=== PATIENT | male | born 1990 | race Two or more races ===

== ENCOUNTER 2020-12-17 22:47 | Emergency (ER) | payer BC ==
[~2020-12-17] VITALS: Ht 190.5 cm; Wt 115.7 kg
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
--- NOTE | 2020-12-17 22:55 | NUR ---
BLOOD OBTAINED AND SENT TO LAB
[2020-12-17 23:08] LABS: BASOPHILS # (AUTO) 0.1 K/uL (0.0-0.2); BASOPHILS % (AUTO) 0.6 % (0.0-2.0); EOSINOPHILS % (AUTO) 3.3 % (0.0-6.0); HEMATOCRIT 47 % (39-51); HEMOGLOBIN 15.7 g/dL (13.5-17.5); LYMPHOCYTES # (AUTO) 2.9 K/uL (0.8-4.8); MEAN CORPUSCULAR HGB CONC 33 g/dl (31.0-36.0); MEAN CORPUSCULAR VOLUME 86 fL (80-96); MONOCYTES # (AUTO) 0.5 K/uL (0.1-1.30); MONOCYTES % (AUTO) 5.9 % (2.0-12.0); NEUTROPHILS # (AUTO) 5.3 K/uL (1.8-8.9); NEUTROPHILS % (AUTO) 58.2 % (43.0-81.0); PLATELET COUNT (AUTO) 240 K/uL (150-450); RED BLOOD CELL COUNT(AUTO) 5.46 MIL/uL (4.5-6.0); WHITE BLOOD COUNT (AUTO) 9.1 K/uL (4.3-11.0)
[2020-12-17] MEDS ORDERED: IBUPROFEN 400 MG TABLET ONE (23:12)
[2020-12-17 23:17] LABS: CALCIUM, SERUM 8.8 mg/dL (8.5-10.1); CARBON DIOXIDE 29 mmol/L (21-32); CHLORIDE 103 mmol/L (98-107); GLUCOSE 106 mg/dL (74-106); SODIUM SERUM 140 mmol/L (136-145); UREA NITROGEN, BLOOD 16 mg/dL (7-18)
--- NOTE | 2020-12-17 23:22 | NUR ---
XRAY AT BEDSIDE
[2020-12-17] MEDS ORDERED: IBUP-1957 PO (23:26)
[2020-12-17] MEDS ORDERED: IBUPROFEN 400 MG TABLET PO ONE (23:30)
--- NOTE | 2020-12-17 23:59 | NUR ---
Patient discharged to home in stable condition. Written and verbal after care instructions given. Patient verbalizes understanding of instruction. IV removed. Catheter intact and site benign. Pressure and 4x4 applied to site. No bleeding noted. PT ambulatory with a steady gait
[2020-12-18 00:04] VITALS: BP 125/71
== END 2020-12-17 23:59 | disposition home or self-care (01) ==
LOC: ER 22:53
DX: R07.89 Other chest pain (principal); V49.59XA Passenger injured in collision with other motor vehicles in traffic accident, initial encounter; Y93.89 Activity, other specified; Y92.413 State road as the place of occurrence of the external cause; Y99.8 Other external cause status
CPT/HCPCS: 36415; 71045-TC; 80048-TC; 84484-TC; 85025-TC